=== PATIENT | male | born 1950 | race Caucasian/White ===

== ENCOUNTER 2019-11-05 10:44 | Inpatient (IN) ==
[2019-11-05 10:57] VITALS: BMI 21.3
--- NOTE | 2019-11-05 11:04 | DR.EXTPAIN ---
HPI Time seen Time Seen by Provider: 11/05/19 10:58 PCP Primary Care Physician: dr lafleur HPI Comment HPI Comment: PATIENT IS 69YR OLD MALE IN ER FOR GENERALIZED WEAKNESS AND ANOREXIA AND TO BE EVALUATED FOR PEG TUBE PLACEMENT. NO NAUSEA OR VOMITING. ES ENT IS NOT EATING AND IS GETTING WEAKER. NO COUGH OR CONGESTION. RECENTLY IN HOSPITAL IN [facility] AND IS IN THE PROCESS OF GOING INTO THE ALF FRIDAY. HE IS NOT EATING AND RELATIVES WANT A FEEDING TUBE SO HE CAN HAVE SOME NUTRITION. NO FEVER. Complaint/Symptoms Chief Complaint Doctor Comments: HERE FOR GENERALIZED WEAKNESS, ANREXIA SO HE CAN BE EVALUATED FOR FEEDING TUBE PLACEMENT. Chief Complaint:: family stated her was released from [place] a week ago and was sent to the [facility] in [place]. family stated he will not eat and has been loosing wt. family wanted him worked up. COVID-19 Coronavirus risk:travel/contact w/high risk person: No Has patient experienced Coronavirus symptoms: No Nurses notes reviewed Nurses Notes Review: Yes Source History Provided: Family Member Mode of arrival Mode of Arrival: Wheelchair Timing Onset of Chief Complaint: 10/29/19 Context History of: None Associated signs and symptoms Associated Signs and Symptoms: Weakness and Other (ANOREXIA.) PMH PMH Past Medical History: Yes (unknown) Past Surgical History: Yes Surgical History: Unknown Family History History of Family Medical Conditions: No Social History Does patient currently use any type of tobacco product: No Have you used tobacco products in the last 12 months: No Type of Tobacco Use: None Does any household member use tobacco: No Alcohol Use: None Do you use any recreational Drugs:: No Lives With: Family Lives Where: Home Infectious screening In the last 2 months have you had wt loss of >10#?: NO Have you had fever, night sweats or hemotysis?: No Have you traveled outside the country in the last 6 months?: No Isolation: Standard ROS Review of Systems Constitutional: See HPI, Weakness, Fatigue and Loss of Appetite; negative Fever Eyes: See HPI and Other (BLINDNESS LEFT EYE. DEAFNESS LEFT EAR.) ENTM: See HPI, Ear Pain and Hearing Loss (DEAFNESS LEFT EAR.); negative Nose Discharge, Nose Congestion and Throat Pain Respiratoy: No Symptoms Reported and See HPI; negative Moist Cough, Short of Jolene ath and Wheezing Cardiovascular: No Symptoms Reported and See HPI; negative Chest Pain, Edema and Palpitations Gastrointestinal/Abdominal: No Symptoms Reported and See HPI; negative Abdominal Pain, Diarrhea, Nausea and Vomiting Genitourinary: No Symptoms Reported and See HPI; negative Dysuria Neurological: See HPI and Weakness; negative Headache and Dizziness Musculoskeletal: No Symptoms Reported and See HPI; negative Back Pain Integumentary: No Symptoms Reported and See HPI; negative Change in Color, Rash and Juandice Hematologic/Lymphatic: No Symptoms Reported and See HPI; negative Easy Bruising and Swollen Glands Endocrine: No Symptoms Reported and See HPI; negative Increased Thirst and Increased Urine Psychiatric: No Symptoms Reported and See HPI All Other Systems: Reviewed and Negative PE Vital Signs Vitals: Temperature 98.1 F Pulse Rate [Left Radial] 102 Pulse Rate 78 Respiratory Rate 20 Blood Pressure [Left Arm] 175/84 Blood Pressure 117/72 O2 Sat by Pulse Oximetry 98 General Limitations: No Limitations General Appearance: Alert and In No Apparent Distress Head Head Exam: Normal Inspection Eyes Eye exam: Normal Appearance and Other (BLINDNESS LEFT EYE.); negative Conjunctival Injection ENT ENT Exam: Normal Exam, Normal Oropharynx, Normal External Ear Exam and TM's No rmal Bilaterally Neck Neck Exam: Normal Inspection and Trachea Midline; negative Tenderness and Lymphadenopathy Chest Chest Inspection: Normal Inspection and Symmetric Chest Wall Rise; negative Tenderness Respiratory Respiratory Exam: Normal Lung Sounds Bilat; negative Accessory Muscle Use, Chest Wall Tenderness and Respiratory Distress Respiratory Exam: Bilateral: Rhonchi and Lower: Rhonchi Cardiovascular Cardiovascular Exam: Regular Rate, Normal Rhythm and Normal Heart Sounds; negative Systolic Murmur and Diastolic Murmur Abdominal Exam Abdominal Exam: Normal Inspection, Normal Bowel Sounds and Soft; negative Tenderness Extremities Extremities Exam: Normal Inspection and Normal Capillary Refill; negative Tenderness, Edema and Calf Tenderness Back Back Exam: Normal Inspection Neurological Neurological Exam: Alert; negative Motor Sensory Deficit Psychiatric Psychiatric Exam: Normal Affect and Normal Mood Skin Skin Exam: Warm, Dry, Intact and Normal Color; negative Rash MDM Differential Diagnosis Differential Diagnosis: Other (ANOREXIA, GENERALIZED WEAKNESS, G-TUBE PLACEMENT.) COURSE Treatment Treatment: SEE ORDERS. Consultation Consultation Comments: SURGERY CONSULT. DR. SUNSHINE IN ER TO SEE PATIENT AND WILL INSERT G-TUBE TODAY. Education/Counseling Education/Counseling: Patient and Family Educated On: Diagnosis ROR Labs Reviewed Laboratory Results Reviewed?: Yes Result Diagrams: 11/06/19 04:24 11/06/19 04:24 Laboratory: WBC 8.5 X10^3/uL (3.6-10.0) 11/05/19 11:25 RBC 3.60 X10^6/uL (4.7-6.0) L 11/05/19 11:25 Hgb 11.0 g/dL (13.5-18.0) L 11/05/19 11:25 Hct 33.3 % (42.0-54.0) L 11/05/19 11:25 MCV 92.5 fL (80.0-100.0) 11/05/19 11:25 MCH 30.5 pg (27.0-34.0) 11/05/19 11:25 MCHC 32.9 g/dL (33.0-35.0) L 11/05/19 11:25 RDW 18.6 % (11.6-16.5) H 11/05/19 11:25 Plt Count 447 X10^3/uL (150.0-450.0) 11/05/19 11:25 MPV 8.3 fL (7.4-11.0) 11/05/19 11:25 Neut % (Auto) 71.9 % (42.0-75.0) 11/05/19 11:25 Lymph % (Auto) 15.6 % (21.0-51.0) L 11/05/19 11:25 [place] % (Auto) 11.0 % (0.0-13.0) 11/05/19 11:25 Eos % (Auto) 1.2 % (0.9-2.9) 11/05/19 11:25 Baso % (Auto) 0.3 % (0.2-1.0) 11/05/19 11:25 Neut # (Auto) 6.1 x10^3/uL (2.2-4.8) H 11/05/19 11:25 Lymph # (Auto) 1.3 X10^3/uL (1.3-2.9) 11/05/19 11:25 [place] # (Auto) 0.9 x10^3/uL (0.3-0.8) H 11/05/19 11:25 Eos # (Auto) 0.1 x10^3/uL (0.0-0.2) 11/05/19 11:25 Baso # (Auto) 0.0 X10^3/uL (0.0-0.1) 11/05/19 11:25 Absolute Nucleated RBC 0.1 /100WBC 11/05/19 11:25 Sodium 140 mmol/L (136-145) 11/05/19 11:38 Corrected Sodium TNP 11/05/19 11:38 Potassium 4.2 mmol/L (3.5-5.1) 11/05/19 11:38 Chloride 106 mmol/L (98-107) 11/05/19 11:38 Carbon Dioxide 27.3 mmol/L (21-32) 11/05/19 11:38 BUN 15 mg/dL (7-18) 11/05/19 11:38 Creatinine 0.86 mg/dL (0.70-1.30) 11/05/19 11:38 Est GFR (MDRD) Af Amer > 60 (>60) 11/05/19 11:38 Est GFR (MDRD) Non-Af > 60 (>60) 11/05/19 11:38 Glucose 96 mg/dL (65-99) 11/05/19 11:38 Calcium 9.1 mg/dL (8.5-10.1) 11/05/19 11:38 Corrected Calcium 10.5 mg/dL (8.5-10.1) H 11/05/19 11:38 Total Bilirubin 0.50 mg/dL (0.2-1.0) 11/05/19 11:38 AST 43 Units/L (15-37) H 11/05/19 11:38 ALT 52 Units/L (12-78) 11/05/19 11:38 Alkaline Phosphatase 107 Units/L (46-116) 11/05/19 11:38 Total Protein 7.6 g/dL (6.4-8.2) 11/05/19 11:38 Albumin 2.3 g/dL (3.4-5.0) L 11/05/19 11:38 Globulin 5.3 g/dL (2.5-4.5) H 11/05/19 11:38 Albumin/Globulin Ratio 0.4 Ratio (1.1-2.1) L 11/05/19 11:38 SARS-CoV-2 (PCR) Negative (NEGATIVE) 05/22/20 11:56 XRAY XRAY Interpreted by: Radiologist (REPORT NOTED AND DISCUSSED WITH PATIENT. ) and Self EKG Rate: 83 [place]: LAD Rhythm: NSR Block: IVCD Hypertrophy: LVH ST: Nonsp Opioid Opioid Risk Tool Age ([place] box if 16-45): No History of Preadolescent Sexual Abuse: No Total: 0 Total Score Risk Category: Low Risk Copyright: Gallo VELIZ predicting aberrant behaviors Diagnosis Discharge Problem: Weakness, Anorexia Instructions Forms: Excuse From Work Precautions for COVID19 Patient Portal Social Distancing
[2019-11-05 11:41] LABS: BASOPHILS % (AUTO) 0.3 % (0.2-1.0); EOSINOPHILS # (AUTO) 0.1 x10^3/uL (0.0-0.2); EOSINOPHILS % (AUTO) 1.2 % (0.9-2.9); HEMATOCRIT 33.3 % (42.0-54.0); LYMPHOCYTES # (AUTO) 1.3 X10^3/uL (1.3-2.9); LYMPHOCYTES % (AUTO) 15.6 % (21.0-51.0); MEAN CORPUSCULAR HEMOGLOBIN 30.5 pg (27.0-34.0); MEAN CORPUSCULAR HGB CONC 32.9 g/dL (33.0-35.0); MEAN CORPUSCULAR VOLUME 92.5 fL (80.0-100.0); MEAN PLATELET VOLUME 8.3 fL (7.4-11.0); MONOCYTES # (AUTO) 0.9 x10^3/uL (0.3-0.8); NEUTROPHILS # (AUTO) 6.1 x10^3/uL (2.2-4.8); NEUTROPHILS % (AUTO) 71.9 % (42.0-75.0); PLATELET COUNT 447 X10^3/uL (150.0-450.0); RED CELL DISTRIBUTION WIDTH 18.6 % (11.6-16.5); WHITE BLOOD COUNT 8.5 X10^3/uL (3.6-10.0)
[2019-11-05 11:56] LABS: ALANINE AMINOTRANSFERASE 52 Units/L (12-78); ALBUMIN 2.3 g/dL (3.4-5.0); ALKALINE PHOSPHATASE 107 Units/L (46-116); ASPARTATE AMINO TRANSFERASE 43 Units/L (15-37); BLOOD UREA NITROGEN 15 mg/dL (7-18); CALCIUM 9.1 mg/dL (8.5-10.1); CARBON DIOXIDE 27.3 mmol/L (21-32); CHLORIDE 106 mmol/L (98-107); COR CA(FOR HYPOALB) 10.5 mg/dL (8.5-10.1); CREATININE 0.86 mg/dL (0.70-1.30); SODIUM 140 mmol/L (136-145); TOTAL PROTEIN 7.6 g/dL (6.4-8.2); eGFR NON BLACK RACES > 60 (>60)
--- NOTE | 2019-11-05 12:07 | RAD ---
HISTORYPREOP CLEARANCE FOR GTUBESTUDYCHEST, 1 VIEWCOMPARISONApril 2019.FINDINGSThe trachea is midline. The cardiac silhouette is enlarged stable. The lungs are clear without focal infiltrate or effusion. The bony thorax is unremarkable. There is no evidence for CHF. There is no pneumothorax appreciated. No other cardiopulmonary changes seen.IMPRESSIONNo acute cardiopulmonary disease or changes.Electronically signed by: FITO GANN III (November 05, 2019 12:05:42)
[2019-11-05] MEDS ORDERED: DIPRIVAN VIAL 20 ML ONE (14:49)
[2019-11-05] MEDS ORDERED: XYLOCAINE 2 % (PLAIN) ONE ×2 (14:49)
[2019-11-05] MEDS ORDERED: ANCEF 1 GRAM IV PREMIX* 1 G/50 ML BAG IV ONE (15:35)
--- NOTE | 2019-11-05 15:38 | OR.IMMED ---
Immediate Post-Op Note - Immediate Post-Op Note Pre-Op Diagnosis: failure to thrive and poor oral intake .. Post-Op Diagnosis: same . Procedure: EGD . placement of PEG feding tube . Surgeon/Quality Management Coordinator: Zion. Specimens Removed: none. Estimated Blood Loss: <2cc Drains: NONE Complications: none Condition: Stable (to keep NPO .. PEG tube to gravity q 6 houre for 15 minutes)
[2019-11-05] MEDS ORDERED: D5 1/2 NS 1000 ML 1,000 ML IV SCH (16:00)
[2019-11-05] MEDS: NS 1000 ML 1,000 ML IV SCH (19:24)
[2019-11-05] MEDS ORDERED: APRESOLINE INJ 20 MG VIAL IVP PRN (21:10)
--- NOTE | 2019-11-05 21:11 | DR.H&P ---
H&P History & Physical for Day of: H&P Date: 11/05/19 Chief Complaint Chief Complaint: Weakness Allergies Allergies Allergy/AdvReac Type Severity Reaction Status Date / Time Unable to Assess Allergy Unverified 10/10/19 22:40 History of Present Illness History of Present Illness: Pt is a 69 yo m pmhx HTN, Blind, Deaf, and has MR, admitted for weakness and poor oral intake. General surgery was consulted for PEG tube placement. Initial labs/imaging: Wbc 8.5, Hgb 11, Plt 447, Na 140, K 4.2, Cr 0.86, Gluc 96, CXR negative, COVID negative. Pt is scheduled to have procedure today. Continue to monitor and follow up labs in the morning. Past Surgical History Surgical History: Angioplasty/Stents and Other Family History Family Medical History: Coronary Artery Disease Social History Does patient currently use any type of tobacco product: No Have you used tobacco products in the last 12 months: No Type of Tobacco Use: None Does any household member use tobacco: No Alcohol Use: None Drug Use: None Medications Home Medications: Unable to Assess Allergy (Unverified 10/10/19 22:40) CONTINUE taking the following medications acetaminophen 650 mg MD Q4H 11/05/19 [History] haloperidol lactate 11/05/19 [History] haloperidol lactate 11/05/19 [History] hydralazine 25 mg PO DAILY 11/05/19 [History] hyoscyamine sulfate 0.125 mg PO Q4H PRN 11/05/19 [History] lisinopril 10 mg PO DAILY 11/05/19 [History] lorazepam 0.5 mg PO Q2H PRN 11/05/19 [History] metoprolol tartrate 25 mg PO DAILY 11/05/19 [History] morphine concentrate 100 11/05/19 [History] prochlorperazine [Compro] 25 mg MD BID 11/05/19 [History] prochlorperazine [Compro] 25 mg MD BID 11/05/19 [History] quetiapine 50 mg PO BID 11/05/19 [History] Labs Result Diagrams: 11/06/19 04:24 11/06/19 04:24 Labs: Laboratory WBC 8.5 X10^3/uL (3.6-10.0) 11/05/19 11:25 RBC 3.60 X10^6/uL (4.7-6.0) L 11/05/19 11:25 Hgb 11.0 g/dL (13.5-18.0) L 11/05/19 11:25 Hct 33.3 % (42.0-54.0) L 11/05/19 11:25 MCV 92.5 fL (80.0-100.0) 11/05/19 11:25 MCH 30.5 pg (27.0-34.0) 11/05/19 11:25 MCHC 32.9 g/dL (33.0-35.0) L 11/05/19 11:25 RDW 18.6 % (11.6-16.5) H 11/05/19 11:25 Plt Count 447 X10^3/uL (150.0-450.0) 11/05/19 11:25 MPV 8.3 fL (7.4-11.0) 11/05/19 11:25 Neut % (Auto) 71.9 % (42.0-75.0) 11/05/19 11:25 Lymph % (Auto) 15.6 % (21.0-51.0) L 11/05/19 11:25 [place] % (Auto) 11.0 % (0.0-13.0) 11/05/19 11:25 Eos % (Auto) 1.2 % (0.9-2.9) 11/05/19 11:25 Baso % (Auto) 0.3 % (0.2-1.0) 11/05/19 11:25 Neut # (Auto) 6.1 x10^3/uL (2.2-4.8) H 11/05/19 11:25 Lymph # (Auto) 1.3 X10^3/uL (1.3-2.9) 11/05/19 11:25 [place] # (Auto) 0.9 x10^3/uL (0.3-0.8) H 11/05/19 11:25 Eos # (Auto) 0.1 x10^3/uL (0.0-0.2) 11/05/19 11:25 Baso # (Auto) 0.0 X10^3/uL (0.0-0.1) 11/05/19 11:25 Absolute Nucleated RBC 0.1 /100WBC 11/05/19 11:25 Sodium 140 mmol/L (136-145) 11/05/19 11:38 Corrected Sodium TNP 11/05/19 11:38 Potassium 4.2 mmol/L (3.5-5.1) 11/05/19 11:38 Chloride 106 mmol/L (98-107) 11/05/19 11:38 Carbon Dioxide 27.3 mmol/L (21-32) 11/05/19 11:38 BUN 15 mg/dL (7-18) 11/05/19 11:38 Creatinine 0.86 mg/dL (0.70-1.30) 11/05/19 11:38 Est GFR (MDRD) Af Amer > 60 (>60) 11/05/19 11:38 Est GFR (MDRD) Non-Af > 60 (>60) 11/05/19 11:38 Glucose 96 mg/dL (65-99) 11/05/19 11:38 Calcium 9.1 mg/dL (8.5-10.1) 11/05/19 11:38 Corrected Calcium 10.5 mg/dL (8.5-10.1) H 11/05/19 11:38 Total Bilirubin 0.50 mg/dL (0.2-1.0) 11/05/19 11:38 AST 43 Units/L (15-37) H 11/05/19 11:38 ALT 52 Units/L (12-78) 11/05/19 11:38 Alkaline Phosphatase 107 Units/L (46-116) 11/05/19 11:38 Total Protein 7.6 g/dL (6.4-8.2) 11/05/19 11:38 Albumin 2.3 g/dL (3.4-5.0) L 11/05/19 11:38 Globulin 5.3 g/dL (2.5-4.5) H 11/05/19 11:38 Albumin/Globulin Ratio 0.4 Ratio (1.1-2.1) L 11/05/19 11:38 SARS-CoV-2 (PCR) Negative (NEGATIVE) 11/05/19 11:56 Review of Systems Constitutional: Weakness; denies Fever and Chills Eyes: No Symptoms Reported ENT: No Symptoms Reported Cardiovascular: No Symptoms Reported Gastrointestinal: No Symptoms Reported Genitourinary: No Symptoms Reported Musculoskeletal: No Symptoms Reported Skin: No Symptoms Reported Neurological: No Symptoms Reported Physical Exam Vital Signs: Temperature 99.1 F Pulse Rate [Left Radial] 83 Pulse Rate 78 Respiratory Rate 20 Blood Pressure [Left Arm] 187/91 Blood Pressure 117/72 O2 Sat by Pulse Oximetry 99 Oriented: Unable to test Eyes: Other (Blind) Nose: Normal Respiratory: Clear Throughout Cardiovascular: Normal Auscultation: Bowel Sounds: Normal Palpation: Normal Tenderness: Normal Skin: Normal Musculoskeletal: Normal Psychiatric: Other Speech Pattern: Appropriate Assessment/Plan (1) Anorexia: Status: Acute Plan: Scheduled for PEG tube placement by general surgery. Continue to monitor. (2) Generalized weakness: Status: Acute (3) Hypertension: Qualifiers: Hypertension type: essential hypertension Qualified Code(s): I10 - Essential (primary) hypertension Status: Acute Review H&P Reviewed: Yes Patient was examined?: Yes
[2019-11-06 00:11] LABS: BILIRUBIN,URINE NEGATIVE (NEGATIVE); BLOOD/HEMOGLOBIN,URINE 4+ (NEGATIVE); GLUCOSE, URINE NEGATIVE (NEGATIVE); KETONES,URINE 2+ (NEGATIVE); LEUKOCYTE ESTERASE ,URINE 3+ (NEGATIVE); NITRITES,URINE POSITIVE (NEGATIVE); PROTEIN,URINE 3+ (NEGATIVE); UROBILINOGEN,URINE NORMAL (NORMAL)
[2019-11-06 00:12] LABS: APPEARANCE,URINE HAZY (CLEAR); COLOR,URINE YELLOW (YELLOW)
[2019-11-06 00:20] LABS: BACTERIA,URINE 1+ /HPF (NEGATIVE); MUCUS,URINE FEW /HPF (NEGATIVE); SQUAMOUS EPITHELIAL CELL,UR NEGATIVE /HPF (NEGATIVE)
[2019-11-06] MEDS: NS 1000 ML 1,000 ML IV SCH ×2 (03:10→06:08)
[2019-11-06 06:02] LABS: BASOPHILS % (AUTO) 0.4 % (0.2-1.0); EOSINOPHILS # (AUTO) 0.1 x10^3/uL (0.0-0.2); EOSINOPHILS % (AUTO) 1.1 % (0.9-2.9); HEMATOCRIT 28.8 % (42.0-54.0); HEMOGLOBIN 9.5 g/dL (13.5-18.0); LYMPHOCYTES # (AUTO) 1.4 X10^3/uL (1.3-2.9); LYMPHOCYTES % (AUTO) 17.3 % (21.0-51.0); MEAN CORPUSCULAR HEMOGLOBIN 30.8 pg (27.0-34.0); MEAN CORPUSCULAR VOLUME 93.1 fL (80.0-100.0); MEAN PLATELET VOLUME 9.3 fL (7.4-11.0); MONOCYTES # (AUTO) 0.9 x10^3/uL (0.3-0.8); MONOCYTES % (AUTO) 10.7 % (0.0-13.0); NEUTROPHILS # (AUTO) 5.9 x10^3/uL (2.2-4.8); NEUTROPHILS % (AUTO) 70.5 % (42.0-75.0); PLATELET COUNT 363 X10^3/uL (150.0-450.0); RED BLOOD COUNT 3.09 X10^6/uL (4.7-6.0); RED CELL DISTRIBUTION WIDTH 18.7 % (11.6-16.5); WHITE BLOOD COUNT 8.4 X10^3/uL (3.6-10.0)
[2019-11-06 06:31] LABS: ALANINE AMINOTRANSFERASE 37 Units/L (12-78); ALKALINE PHOSPHATASE 88 Units/L (46-116); ASPARTATE AMINO TRANSFERASE 31 Units/L (15-37); BLOOD UREA NITROGEN 18 mg/dL (7-18); CALCIUM 8.3 mg/dL (8.5-10.1); CHLORIDE 109 mmol/L (98-107); COR CA(FOR HYPOALB) 9.9 mg/dL (8.5-10.1); CREATININE 0.82 mg/dL (0.70-1.30); SODIUM 141 mmol/L (136-145); TOTAL PROTEIN 6.7 g/dL (6.4-8.2); eGFR NON BLACK RACES > 60 (>60)
--- NOTE | 2019-11-06 12:06 | PCM.PROG ---
Progress Note Progress Note for Day of Date of Exam: 11/06/19 Subjective Subjective: Pt is a 69 yo m pmhx HTN, Blind, Deaf, and has MR, admitted for PEG tube placement after having weakness and poor oral intake. S/p PEG tube placement (11/04). Labs/imaging: Wbc 8.4, Hgb 11>9.5, Plt 363, Na 141, K 4, Cr 0.82, Gluc 79, CXR negative, COVID negative. Overnight patient did have slow bleeding surround the tube site. Area now appears to not be actively bleeding. Will hold on using PEG tube until this afternoon if area remains stable. UA results c/w infection, UrineCx pending. Will start Rocephin. Continue to monitor and follow up labs in the morning. Past Medical Family Social History Past Med/Fam/Surg Hx: No changes since H&P Allergies: Allergies Unable to Assess Allergy (Unverified 10/10/19 22:40) Review of Systems ROS: No change since H&P Vital Signs and I&O's Vital Signs: Temperature 98.9 F Pulse Rate [Left Radial] 89 Pulse Rate 78 Respiratory Rate 18 Blood Pressure [Left Arm] 134/83 Blood Pressure 117/72 O2 Sat by Pulse Oximetry 98 Intake and Output: Intake & Output 11/03/19 11/04/19 11/05/19 11/06/19 23:59 23:59 23:59 23:59 Intake Total 820 / 820 400 / 400 Output Total 300 / 300 105 / 105 Balance 520 / 520 295 / 295 Physical Exam Oriented: Unable to test Eyes: Other (Blind) Nose: Normal Cardiovascular: Normal Auscultation: Bowel Sounds: Normal Tenderness: Normal Skin: Other (PEG tube, dried blood surrounding insertion site ) Musculoskeletal: Normal Psychiatric: Other Speech Pattern: Appropriate Laboratory and Diagnostics Result Diagrams: 11/06/19 04:24 11/06/19 04:24 Labs: Laboratory WBC 8.4 X10^3/uL (3.6-10.0) 11/06/19 04:24 RBC 3.09 X10^6/uL (4.7-6.0) L 11/06/19 04:24 Hgb 9.5 g/dL (13.5-18.0) L 11/06/19 04:24 Hct 28.8 % (42.0-54.0) L 11/06/19 04:24 MCV 93.1 fL (80.0-100.0) 11/06/19 04:24 MCH 30.8 pg (27.0-34.0) 11/06/19 04:24 MCHC 33.0 g/dL (33.0-35.0) 11/06/19 04:24 RDW 18.7 % (11.6-16.5) H 11/06/19 04:24 Plt Count 363 X10^3/uL (150.0-450.0) 11/06/19 04:24 MPV 9.3 fL (7.4-11.0) 11/06/19 04:24 Neut % (Auto) 70.5 % (42.0-75.0) 11/06/19 04:24 Lymph % (Auto) 17.3 % (21.0-51.0) L 11/06/19 04:24 [place] % (Auto) 10.7 % (0.0-13.0) 11/06/19 04:24 Eos % (Auto) 1.1 % (0.9-2.9) 11/06/19 04:24 Baso % (Auto) 0.4 % (0.2-1.0) 11/06/19 04:24 Neut # (Auto) 5.9 x10^3/uL (2.2-4.8) H 11/06/19 04:24 Lymph # (Auto) 1.4 X10^3/uL (1.3-2.9) 11/06/19 04:24 [place] # (Auto) 0.9 x10^3/uL (0.3-0.8) H 11/06/19 04:24 Eos # (Auto) 0.1 x10^3/uL (0.0-0.2) 11/06/19 04:24 Baso # (Auto) 0.0 X10^3/uL (0.0-0.1) 11/06/19 04:24 Absolute Nucleated RBC 0.0 /100WBC 11/06/19 04:24 Sodium 141 mmol/L (136-145) 11/06/19 04:24 Corrected Sodium TNP 11/06/19 04:24 Potassium 4.0 mmol/L (3.5-5.1) 11/06/19 04:24 Chloride 109 mmol/L (98-107) H 11/06/19 04:24 Carbon Dioxide 23.0 mmol/L (21-32) 11/06/19 04:24 BUN 18 mg/dL (7-18) 11/06/19 04:24 Creatinine 0.82 mg/dL (0.70-1.30) 11/06/19 04:24 Est GFR (MDRD) Af Amer > 60 (>60) 11/06/19 04:24 Est GFR (MDRD) Non-Af > 60 (>60) 11/06/19 04:24 Glucose 79 mg/dL (65-99) 11/06/19 04:24 Calcium 8.3 mg/dL (8.5-10.1) L 11/06/19 04:24 Corrected Calcium 9.9 mg/dL (8.5-10.1) 11/06/19 04:24 Total Bilirubin 0.40 mg/dL (0.2-1.0) 11/06/19 04:24 AST 31 Units/L (15-37) 11/06/19 04:24 ALT 37 Units/L (12-78) 11/06/19 04:24 Alkaline Phosphatase 88 Units/L (46-116) 11/06/19 04:24 Total Protein 6.7 g/dL (6.4-8.2) 11/06/19 04:24 Albumin 2.0 g/dL (3.4-5.0) L 11/06/19 04:24 Globulin 4.7 g/dL (2.5-4.5) H 11/06/19 04:24 Albumin/Globulin Ratio 0.4 Ratio (1.1-2.1) L 11/06/19 04:24 Specimen Type Catherized urine 11/06/19 00:00 Urine Color Yellow (YELLOW) 11/06/19 00:00 Urine Appearance Hazy (CLEAR) 11/06/19 00:00 Urine pH 5.0 (5.0 - 8.0) 11/06/19 00:00 Ur Specific [place] 1.025 (1.000-1.030) 11/06/19 00:00 Urine Protein 3+ (NEGATIVE) 11/06/19 00:00 Urine Glucose (UA) Negative (NEGATIVE) 11/06/19 00:00 Urine Ketones 2+ (NEGATIVE) 11/06/19 00:00 Urine Occult Blood 4+ (NEGATIVE) 11/06/19 00:00 Urine Nitrite Positive (NEGATIVE) 11/06/19 00:00 Urine Bilirubin Negative (NEGATIVE) 11/06/19 00:00 Urine Urobilinogen Normal (NORMAL) 11/06/19 00:00 Ur Leukocyte Esterase 3+ (NEGATIVE) 11/06/19 00:00 Urine RBC 3-5 /HPF (0-3) A 11/06/19 00:00 Urine WBC 20-30 /HPF (0-5) A 11/06/19 00:00 Ur Squamous Epith Cells Negative /HPF (NEGATIVE) 11/06/19 00:00 Urine Bacteria 1+ /HPF (NEGATIVE) 11/06/19 00:00 Urine Mucus Few /HPF (NEGATIVE) 11/06/19 00:00 Ur Culture Indicated? Yes/culture set up 11/06/19 00:00 SARS-CoV-2 (PCR) Negative (NEGATIVE) 11/05/19 11:56 Plan (1) Status post insertion of percutaneous endoscopic gastrostomy (PEG) tube: Status: Acute Plan: Placed 11/05/19 (2) Anorexia: Status: Acute Plan: PEG tube placement by general surgery. (3) Generalized weakness: Status: Acute (4) Hypertension: Status: Acute Qualifiers: Hypertension type: essential hypertension Qualified Code(s): I10 - Essential (primary) hypertension Plan: Resume home medication (5) Urinary tract infection: Status: Acute Plan: Rocephin(11/05) UrineCx pending
[2019-11-06] MEDS ORDERED: HALDOL PO PRN (12:10)
[2019-11-06] MEDS ORDERED: ATIVAN TAB 0.5 MG PO PRN (12:10)
[2019-11-06] MEDS: ROCEPHIN VIAL 1 GRAM 1 G in NS 100 ML IV + SPIKE MINIBAG* 100 ML IV SCH (14:46)
[2019-11-06] MEDS: APRESOLINE TAB 25 MG PO SCH (14:46)
[2019-11-06] MEDS: SEROquel TAB 25 mg PO SCH (22:30)
[2019-11-07] MEDS: NS 1000 ML 1,000 ML IV SCH ×4 (00:33→21:42)
[2019-11-07 06:10] LABS: BASOPHILS % (AUTO) 0.5 % (0.2-1.0); EOSINOPHILS # (AUTO) 0.2 x10^3/uL (0.0-0.2); EOSINOPHILS % (AUTO) 2.5 % (0.9-2.9); HEMATOCRIT 25.9 % (42.0-54.0); HEMOGLOBIN 8.8 g/dL (13.5-18.0); LYMPHOCYTES # (AUTO) 1.4 X10^3/uL (1.3-2.9); LYMPHOCYTES % (AUTO) 19.9 % (21.0-51.0); MEAN CORPUSCULAR HGB CONC 33.7 g/dL (33.0-35.0); MEAN CORPUSCULAR VOLUME 91.9 fL (80.0-100.0); MONOCYTES # (AUTO) 0.8 x10^3/uL (0.3-0.8); MONOCYTES % (AUTO) 11.5 % (0.0-13.0); NEUTROPHILS # (AUTO) 4.7 x10^3/uL (2.2-4.8); NEUTROPHILS % (AUTO) 65.6 % (42.0-75.0); PLATELET COUNT 300 X10^3/uL (150.0-450.0); RED BLOOD COUNT 2.82 X10^6/uL (4.7-6.0); RED CELL DISTRIBUTION WIDTH 18.3 % (11.6-16.5); WHITE BLOOD COUNT 7.2 X10^3/uL (3.6-10.0)
[2019-11-07 06:27] LABS: ALANINE AMINOTRANSFERASE 30 Units/L (12-78); ALBUMIN 1.9 g/dL (3.4-5.0); ALKALINE PHOSPHATASE 87 Units/L (46-116); ASPARTATE AMINO TRANSFERASE 26 Units/L (15-37); BLOOD UREA NITROGEN 23 mg/dL (7-18); CALCIUM 8.2 mg/dL (8.5-10.1); CARBON DIOXIDE 25.3 mmol/L (21-32); CHLORIDE 109 mmol/L (98-107); COR CA(FOR HYPOALB) 9.9 mg/dL (8.5-10.1); COR NA(FOR HYPERGLY) 142 mmol/L (136-145); CREATININE 0.74 mg/dL (0.70-1.30); SODIUM 141 mmol/L (136-145); TOTAL PROTEIN 6.2 g/dL (6.4-8.2); eGFR NON BLACK RACES > 60 (>60)
[2019-11-07] MEDS ORDERED: K-DUR TAB 20 MEQ PO ONE (07:55)
[2019-11-07] MEDS: ROCEPHIN VIAL 1 GRAM 1 G in NS 100 ML IV + SPIKE MINIBAG* 100 ML IV SCH (09:12)
[2019-11-07] MEDS: SEROquel TAB 25 mg PO SCH ×2 (09:12→21:00)
[2019-11-07] MEDS: ZESTRIL TAB 10 MG PO SCH (09:13)
[2019-11-07] MEDS: APRESOLINE TAB 25 MG PO SCH (09:13)
[2019-11-07] MEDS: LOPRESSOR TAB 25 MG PO SCH (09:14)
--- NOTE | 2019-11-07 10:19 | PCM.PROG ---
Progress Note Progress Note for Day of Date of Exam: 11/07/19 Subjective Subjective: Pt is a 69 yo m pmhx HTN, Blind, Deaf, and has MR, admitted for PEG tube placement after having weakness and poor oral intake. S/p PEG tube placement (11/04). Labs/imaging: Wbc 7.2, Hgb 9.5>8.8, Plt 300, Na 141, K 3.5, Cr 0.74, Gluc 137, CXR negative, COVID negative. Yesterday afternoon feedings started using PEG, no complications, will get residuals q-shift. Hgb appears to have stabilized, will continue to monitor. UrineCx prelim >100K gram negative rods. Continue Rocephin. Continue to monitor and follow up labs in the morning. Past Medical Family Social History Past Med/Fam/Surg Hx: No changes since H&P Allergies: Allergies Unable to Assess Allergy (Unverified 10/10/19 22:40) Review of Systems ROS: No change since H&P Vital Signs and I&O's Vital Signs: Temperature 98.9 F Pulse Rate [Left Radial] 82 Pulse Rate 78 Respiratory Rate 18 Blood Pressure [Left Arm] 143/67 Blood Pressure 117/72 O2 Sat by Pulse Oximetry 98 Intake and Output: Intake & Output 11/04/19 11/05/19 11/06/19 11/07/19 23:59 23:59 23:59 23:59 Intake Total 820 / 820 1137 / 1137 936 / 936 Output Total 300 / 300 350 / 350 300 / 300 Balance 520 / 520 787 / 787 636 / 636 Physical Exam Oriented: Unable to test Eyes: Other (Blind) Nose: Normal Cardiovascular: Normal Auscultation: Bowel Sounds: Normal Tenderness: Normal Skin: Other (PEG tube, dried blood surrounding insertion site ) Musculoskeletal: Normal Psychiatric: Other Speech Pattern: Unclear Laboratory and Diagnostics Result Diagrams: 11/07/19 04:28 11/07/19 04:28 Labs: 11/06/19 00:00 Urine,Catheterized Urine Culture - Preliminary Laboratory WBC 7.2 X10^3/uL (3.6-10.0) 11/07/19 04:28 RBC 2.82 X10^6/uL (4.7-6.0) L 11/07/19 04:28 Hgb 8.8 g/dL (13.5-18.0) L 11/07/19 04:28 Hct 25.9 % (42.0-54.0) L 11/07/19 04:28 MCV 91.9 fL (80.0-100.0) 11/07/19 04:28 MCH 31.0 pg (27.0-34.0) 11/07/19 04:28 MCHC 33.7 g/dL (33.0-35.0) 11/07/19 04: RDW 18.3 % (11.6-16.5) H 11/07/19 04:28 Plt Count 300 X10^3/uL (150.0-450.0) 11/07/19 04:28 MPV 9.0 fL (7.4-11.0) 11/07/19 04:28 Neut % (Auto) 65.6 % (42.0-75.0) 11/07/19 04:28 Lymph % (Auto) 19.9 % (21.0-51.0) L 11/07/19 04:28 [place] % (Auto) 11.5 % (0.0-13.0) 11/07/19 04:28 Eos % (Auto) 2.5 % (0.9-2.9) 11/07/19 04:28 Baso % (Auto) 0.5 % (0.2-1.0) 11/07/19 04:28 Neut # (Auto) 4.7 x10^3/uL (2.2-4.8) 11/07/19 04:28 Lymph # (Auto) 1.4 X10^3/uL (1.3-2.9) 11/07/19 04:28 [place] # (Auto) 0.8 x10^3/uL (0.3-0.8) 11/07/19 04:28 Eos # (Auto) 0.2 x10^3/uL (0.0-0.2) 11/07/19 04:28 Baso # (Auto) 0.0 X10^3/uL (0.0-0.1) 11/07/19 04:28 Absolute Nucleated RBC 0.0 /100WBC 11/07/19 04:28 Sodium 141 mmol/L (136-145) 11/07/19 04:28 Corrected Sodium 142 mmol/L (136-145) 11/07/19 04:28 Potassium 3.5 mmol/L (3.5-5.1) 11/07/19 04:28 Chloride 109 mmol/L (98-107) H 11/07/19 04:28 Carbon Dioxide 25.3 mmol/L (21-32) 11/07/19 04:28 BUN 23 mg/dL (7-18) H 11/07/19 04:28 Creatinine 0.74 mg/dL (0.70-1.30) 11/07/19 04:28 Est GFR (MDRD) Af Amer > 60 (>60) 11/07/19 04:28 Est GFR (MDRD) Non-Af > 60 (>60) 11/07/19 04:28 Glucose 137 mg/dL (65-99) H 11/07/19 04:28 Calcium 8.2 mg/dL (8.5-10.1) L 11/07/19 04:28 Corrected Calcium 9.9 mg/dL (8.5-10.1) 11/07/19 04:28 Total Bilirubin 0.20 mg/dL (0.2-1.0) 11/07/19 04:28 AST 26 Units/L (15-37) 11/07/19 04:28 ALT 30 Units/L (12-78) 11/07/19 04:28 Alkaline Phosphatase 87 Units/L (46-116) 11/07/19 04:28 Total Protein 6.2 g/dL (6.4-8.2) L 11/07/19 04:28 Albumin 1.9 g/dL (3.4-5.0) L 11/07/19 04:28 Globulin 4.3 g/dL (2.5-4.5) 11/07/19 04:28 Albumin/Globulin Ratio 0.4 Ratio (1.1-2.1) L 11/07/19 04:28 Specimen Type Catherized urine 11/06/19 00:00 Urine Color Yellow (YELLOW) 11/06/19 00:00 Urine Appearance Hazy (CLEAR) 11/06/19 00:00 Urine pH 5.0 (5.0 - 8.0) 11/06/19 00:00 Ur Specific Simpson 1.025 (1.000-1.030) 11/06/19 00:00 Urine Protein 3+ (NEGATIVE) 11/06/19 00:00 Urine Glucose (UA) Negative (NEGATIVE) 11/06/19 00:00 Urine Ketones 2+ (NEGATIVE) 11/06/19 00:00 Urine Occult Blood 4+ (NEGATIVE) 11/06/19 00:00 Urine Nitrite Positive (NEGATIVE) 11/06/19 00:00 Urine Bilirubin Negative (NEGATIVE) 11/06/19 00:00 Urine Urobilinogen Normal (NORMAL) 11/06/19 00:00 Ur Leukocyte Esterase 3+ (NEGATIVE) 11/06/19 00:00 Urine RBC 3-5 /HPF (0-3) A 11/06/19 00:00 Urine WBC 20-30 /HPF (0-5) A 11/06/19 00:00 Ur Squamous Epith Cells Negative /HPF (NEGATIVE) 11/06/19 00:00 Urine Bacteria 1+ /HPF (NEGATIVE) 11/06/19 00:00 Urine Mucus Few /HPF (NEGATIVE) 11/06/19 00:00 Ur Culture Indicated? Yes/culture set up 11/06/19 00:00 SARS-CoV-2 (PCR) Negative (NEGATIVE) 11/05/19 11:56 Plan (1) Status post insertion of percutaneous endoscopic gastrostomy (PEG) tube: Status: Acute Plan: Placed on 11/05/19 (2) Anorexia: Status: Acute Plan: PEG tube placement by general surgery. (3) Generalized weakness: Status: Acute (4) Hypertension: Status: Acute Qualifiers: Hypertension type: essential hypertension Qualified Code(s): I10 - Essential (primary) hypertension Plan: Resume home medication (5) Urinary tract infection: Status: Acute Plan: Rocephin(11/05) UrineCx prelim gram negative rods
[2019-11-07] MEDS: LOVENOX INJ 40 MG SYR SC SCH (11:37)
[2019-11-07] MEDS ORDERED: BUTT CREAM (COMPOUND) TOP PRN (21:50)
[2019-11-08 05:21] LABS: BASOPHILS % (AUTO) 0.2 % (0.2-1.0); EOSINOPHILS # (AUTO) 0.2 x10^3/uL (0.0-0.2); EOSINOPHILS % (AUTO) 2.3 % (0.9-2.9); HEMATOCRIT 26.3 % (42.0-54.0); HEMOGLOBIN 8.9 g/dL (13.5-18.0); LYMPHOCYTES # (AUTO) 1.5 X10^3/uL (1.3-2.9); LYMPHOCYTES % (AUTO) 20.8 % (21.0-51.0); MEAN CORPUSCULAR HEMOGLOBIN 31.3 pg (27.0-34.0); MEAN CORPUSCULAR HGB CONC 33.6 g/dL (33.0-35.0); MEAN PLATELET VOLUME 9.6 fL (7.4-11.0); MONOCYTES # (AUTO) 0.8 x10^3/uL (0.3-0.8); MONOCYTES % (AUTO) 11.9 % (0.0-13.0); NEUTROPHILS # (AUTO) 4.6 x10^3/uL (2.2-4.8); NEUTROPHILS % (AUTO) 64.8 % (42.0-75.0); PLATELET COUNT 275 X10^3/uL (150.0-450.0); RED BLOOD COUNT 2.83 X10^6/uL (4.7-6.0); RED CELL DISTRIBUTION WIDTH 18.5 % (11.6-16.5); WHITE BLOOD COUNT 7.1 X10^3/uL (3.6-10.0)
[2019-11-08 05:28] LABS: ALANINE AMINOTRANSFERASE 25 Units/L (12-78); ALBUMIN 1.9 g/dL (3.4-5.0); ALKALINE PHOSPHATASE 83 Units/L (46-116); ASPARTATE AMINO TRANSFERASE 21 Units/L (15-37); BLOOD UREA NITROGEN 18 mg/dL (7-18); CALCIUM 8.2 mg/dL (8.5-10.1); CARBON DIOXIDE 28.2 mmol/L (21-32); CHLORIDE 107 mmol/L (98-107); COR CA(FOR HYPOALB) 9.9 mg/dL (8.5-10.1); COR NA(FOR HYPERGLY) 141 mmol/L (136-145); SODIUM 141 mmol/L (136-145); TOTAL PROTEIN 6.3 g/dL (6.4-8.2); eGFR NON BLACK RACES > 60 (>60)
[2019-11-08] MEDS: NS 1000 ML 1,000 ML IV SCH ×2 (06:19→09:26)
[2019-11-08] MEDS: ZESTRIL TAB 10 MG PO SCH (08:15)
[2019-11-08] MEDS: APRESOLINE TAB 25 MG PO SCH (08:15)
[2019-11-08] MEDS: SEROquel TAB 25 mg PO SCH ×2 (08:15→20:43)
[2019-11-08] MEDS: ROCEPHIN VIAL 1 GRAM 1 G in NS 100 ML IV + SPIKE MINIBAG* 100 ML IV SCH (08:16)
[2019-11-08] MEDS: LOVENOX INJ 40 MG SYR SC SCH (08:18)
[2019-11-08] MEDS: LOPRESSOR TAB 25 MG PO SCH (08:42)
--- NOTE | 2019-11-08 09:27 | PCM.PROG ---
Progress Note Progress Note for Day of Date of Exam: 11/08/19 Subjective Subjective: Pt is a 69 yo m pmhx HTN, Blind, Deaf, and has MR, admitted for PEG tube placement after having weakness and poor oral intake. S/p PEG tube placement (11/04). Labs/imaging: Wbc 7.1, Hgb 8.9, Plt 275, Na 141, K 3.8, Cr 0.70, Gluc 117. Continue to monitor residuals q-shift. UrineCx prelim >100K gram negative rods, final pending. Continue Rocephin. Continue to monitor and follow up labs in the morning. Past Medical Family Social History Past Med/Fam/Surg Hx: No changes since H&P Allergies: Allergies Unable to Assess Allergy (Unverified 10/10/19 22:40) Review of Systems ROS: No change since H&P Vital Signs and I&O's Vital Signs: Temperature 97.8 F Pulse Rate [Left Radial] 80 Pulse Rate 78 Respiratory Rate 18 Blood Pressure [Right Arm] 149/65 Blood Pressure [Left Arm] 143/67 Blood Pressure 117/72 O2 Sat by Pulse Oximetry 96 Intake and Output: Intake & Output 11/05/19 11/06/19 11/07/19 11/08/19 23:59 23:59 23:59 23:59 Intake Total 820 / 820 1137 / 1137 1975 / 1975 620 / 620 Output Total 300 / 300 350 / 350 800 / 800 300 / 300 Balance 520 / 520 787 / 787 1176 / 1176 320 / 320 Physical Exam Oriented: Unable to test Eyes: Other (Blind) Nose: Normal Respiratory: Normal Cardiovascular: Normal Auscultation: Bowel Sounds: Normal Tenderness: Normal Skin: Other (PEG tube, dried blood surrounding insertion site ) Musculoskeletal: Normal Psychiatric: Other Speech Pattern: Unclear Laboratory and Diagnostics Result Diagrams: 11/08/19 04:28 11/08/19 04:28 Labs: 11/06/19 00:00 Urine,Catheterized Urine Culture - Preliminary Laboratory WBC 7.1 X10^3/uL (3.6-10.0) 11/08/19 04:28 RBC 2.83 X10^6/uL (4.7-6.0) L 11/08/19 04:28 Hgb 8.9 g/dL (13.5-18.0) L 11/08/19 04:28 Hct 26.3 % (42.0-54.0) L 11/08/19 04:28 MCV 93.0 fL (80.0-100.0) 11/08/19 04:28 MCH 31.3 pg (27.0-34.0) 11/08/19 04: MCHC 33.6 g/dL (33.0-35.0) 11/08/19 04: RDW 18.5 % (11.6-16.5) H 11/08/19 04:28 Plt Count 275 X10^3/uL (150.0-450.0) 11/08/19 04: MPV 9.6 fL (7.4-11.0) 11/08/19 04: Neut % (Auto) 64.8 % (42.0-75.0) 11/08/19 04: Lymph % (Auto) 20.8 % (21.0-51.0) L 11/08/19 04:28 [place] % (Auto) 11.9 % (0.0-13.0) 11/08/19 04:28 Eos % (Auto) 2.3 % (0.9-2.9) 11/08/19 04: Baso % (Auto) 0.2 % (0.2-1.0) 11/08/19 04: Neut # (Auto) 4.6 x10^3/uL (2.2-4.8) 11/08/19 04:28 Lymph # (Auto) 1.5 X10^3/uL (1.3-2.9) 11/08/19 04:28 [place] # (Auto) 0.8 x10^3/uL (0.3-0.8) 11/08/19 04:28 Eos # (Auto) 0.2 x10^3/uL (0.0-0.2) 11/08/19 04: Baso # (Auto) 0.0 X10^3/uL (0.0-0.1) 11/08/19 04:28 Absolute Nucleated RBC 0.0 /100WBC 11/08/19 04:28 Sodium 141 mmol/L (136-145) 11/08/19 04:28 Corrected Sodium 141 mmol/L (136-145) 11/08/19 04:28 Potassium 3.8 mmol/L (3.5-5.1) 11/08/19 04:28 Chloride 107 mmol/L (98-107) 11/08/19 04:28 Carbon Dioxide 28.2 mmol/L (21-32) 11/08/19 04:28 BUN 18 mg/dL (7-18) 11/08/19 04:28 Creatinine 0.70 mg/dL (0.70-1.30) 11/08/19 04:28 Est GFR (MDRD) Af Amer > 60 (>60) 11/08/19 04:28 Est GFR (MDRD) Non-Af > 60 (>60) 11/08/19 04:28 Glucose 117 mg/dL (65-99) H 11/08/19 04:28 Calcium 8.2 mg/dL (8.5-10.1) L 11/08/19 04:28 Corrected Calcium 9.9 mg/dL (8.5-10.1) 11/08/19 04:28 Total Bilirubin 0.20 mg/dL (0.2-1.0) 11/08/19 04:28 AST 21 Units/L (15-37) 11/08/19 04:28 ALT 25 Units/L (12-78) 11/08/19 04:28 Alkaline Phosphatase 83 Units/L (46-116) 11/08/19 04:28 Total Protein 6.3 g/dL (6.4-8.2) L 11/08/19 04:28 Albumin 1.9 g/dL (3.4-5.0) L 11/08/19 04:28 Globulin 4.4 g/dL (2.5-4.5) 11/08/19 04:28 Albumin/Globulin Ratio 0.4 Ratio (1.1-2.1) L 11/08/19 04:28 Specimen Type Catherized urine 11/06/19 00:00 Urine Color Yellow (YELLOW) 11/06/19 00:00 Urine Appearance Hazy (CLEAR) 11/06/19 00:00 Urine pH 5.0 (5.0 - 8.0) 11/06/19 00:00 Ur Specific [place] 1.025 (1.000-1.030) 11/06/19 00:00 Urine Protein 3+ (NEGATIVE) 11/06/19 00:00 Urine Glucose (UA) Negative (NEGATIVE) 11/06/19 00:00 Urine Ketones 2+ (NEGATIVE) 11/06/19 00:00 Urine Occult Blood 4+ (NEGATIVE) 11/06/19 00:00 Urine Nitrite Positive (NEGATIVE) 11/06/19 00:00 Urine Bilirubin Negative (NEGATIVE) 11/06/19 00:00 Urine Urobilinogen Normal (NORMAL) 11/06/19 00:00 Ur Leukocyte Esterase 3+ (NEGATIVE) 11/06/19 00:00 Urine RBC 3-5 /HPF (0-3) A 11/06/19 00:00 Urine WBC 20-30 /HPF (0-5) A 11/06/19 00:00 Ur Squamous Epith Cells Negative /HPF (NEGATIVE) 11/06/19 00:00 Urine Bacteria 1+ /HPF (NEGATIVE) 11/06/19 00:00 Urine Mucus Few /HPF (NEGATIVE) 11/06/19 00:00 Ur Culture Indicated? Yes/culture set up 11/06/19 00:00 SARS-CoV-2 (PCR) Negative (NEGATIVE) 11/05/19 11:56 Plan (1) Status post insertion of percutaneous endoscopic gastrostomy (PEG) tube: Status: Acute Plan: Placed on 11/05/19 (2) Anorexia: Status: Acute Plan: PEG tube placement by general surgery. (3) Generalized weakness: Status: Acute (4) Hypertension: Status: Acute Qualifiers: Hypertension type: essential hypertension Qualified Code(s): I10 - Essential (primary) hypertension Plan: Resume home medication (5) Urinary tract infection: Status: Acute Plan: Rocephin(11/05) UrineCx prelim gram negative rods
[2019-11-08] MEDS: MAXIPIME VIAL 1 GRAM 1 G in NS 50 ML IV + SPIKE MINIBAG* 50 ML IV SCH ×2 (10:32→20:43)
[2019-11-09 05:29] LABS: BASOPHILS % (AUTO) 0.4 % (0.2-1.0); EOSINOPHILS # (AUTO) 0.1 x10^3/uL (0.0-0.2); EOSINOPHILS % (AUTO) 1.7 % (0.9-2.9); LYMPHOCYTES # (AUTO) 1.9 X10^3/uL (1.3-2.9); LYMPHOCYTES % (AUTO) 25.6 % (21.0-51.0); MEAN CORPUSCULAR HEMOGLOBIN 31.2 pg (27.0-34.0); MEAN CORPUSCULAR HGB CONC 33.4 g/dL (33.0-35.0); MEAN CORPUSCULAR VOLUME 93.6 fL (80.0-100.0); MEAN PLATELET VOLUME 9.9 fL (7.4-11.0); MONOCYTES # (AUTO) 0.7 x10^3/uL (0.3-0.8); MONOCYTES % (AUTO) 9.6 % (0.0-13.0); NEUTROPHILS # (AUTO) 4.8 x10^3/uL (2.2-4.8); NEUTROPHILS % (AUTO) 62.7 % (42.0-75.0); PLATELET COUNT 227 X10^3/uL (150.0-450.0); RED BLOOD COUNT 2.04 X10^6/uL (4.7-6.0); RED CELL DISTRIBUTION WIDTH 18.2 % (11.6-16.5); WHITE BLOOD COUNT 7.6 X10^3/uL (3.6-10.0)
[2019-11-09 05:35] LABS: ALANINE AMINOTRANSFERASE 19 Units/L (12-78); ALBUMIN 1.6 g/dL (3.4-5.0); ALKALINE PHOSPHATASE 63 Units/L (46-116); ASPARTATE AMINO TRANSFERASE 14 Units/L (15-37); BLOOD UREA NITROGEN 40 mg/dL (7-18); CARBON DIOXIDE 28.5 mmol/L (21-32); CHLORIDE 109 mmol/L (98-107); COR CA(FOR HYPOALB) 9.9 mg/dL (8.5-10.1); COR NA(FOR HYPERGLY) 143 mmol/L (136-145); CREATININE 0.63 mg/dL (0.70-1.30); SODIUM 142 mmol/L (136-145); TOTAL PROTEIN 5.5 g/dL (6.4-8.2); eGFR NON BLACK RACES > 60 (>60)
[2019-11-09 05:53] LABS: HEMATOCRIT 19.1 % (42.0-54.0); HEMOGLOBIN 6.4 g/dL (13.5-18.0)
[2019-11-09 07:15] LABS: HEMOGLOBIN 6.1 g/dL (13.5-18.0)
[2019-11-09 07:16] LABS: HEMATOCRIT 18.4 % (42.0-54.0)
[2019-11-09] MEDS: APRESOLINE TAB 25 MG PO SCH (08:31)
[2019-11-09] MEDS: ZESTRIL TAB 10 MG PO SCH (08:31)
[2019-11-09] MEDS: SEROquel TAB 25 mg PO SCH ×2 (08:31→20:20)
[2019-11-09] MEDS: MAXIPIME VIAL 1 GRAM 1 G in NS 50 ML IV + SPIKE MINIBAG* 50 ML IV SCH ×2 (08:31→20:20)
[2019-11-09] MEDS: LOPRESSOR TAB 25 MG PO SCH (08:32)
[2019-11-09] MEDS: CYTOTEC PO SCH ×4 (08:32→20:20)
[2019-11-09] MEDS: LOVENOX INJ 40 MG SYR SC SCH (08:33)
[2019-11-09] MEDS: PROTONIX INJ 40 MG VIAL IVP SCH ×2 (08:45→20:20)
[2019-11-09] MEDS ORDERED: NS 500 ML IV 500 ML IV ONE (08:53)
[2019-11-09 09:34] LABS: GASTRIC OCCULT BLOOD POSITIVE (NEGATIVE); PH,GASTRIC FLUID 4
--- NOTE | 2019-11-09 13:22 | DR.PROGNOT ---
Hospital Progress Notes - Progress Note for Day of: Progress Note Date: 11/09/19 - Chief Complaint Chief Complaint: was found to be anemic and drop of his Hgb . coffee ground material in the gastric irrigation . normal color stool .. stable VS . - Past Medical Family Social History Past Med/Fam/Surg Hx: No changes since H&P Allergies: Allergies Unable to Assess Allergy (Unverified 10/10/19 22:40) - Review Of Systems ROS: No change since H&P - Vital Signs Vital Signs: Temperature 97.7 F Pulse Rate [Left Radial] 86 Pulse Rate 78 Respiratory Rate 18 Blood Pressure [Right Arm] 140/63 Blood Pressure [Left Arm] 143/67 Blood Pressure 117/72 O2 Sat by Pulse Oximetry 99 - Physical Exam Oriented: Unable to test Eyes: Other (Blind) Nose: Normal Respiratory: Normal Cardiovascular: Normal GI:Auscultation: Normal GI:Palpation: Normal GI: Tenderness: Normal (soft, flat abdomen , BS+ nontender ..) Skin: Other (PEG tube, dried blood surrounding insertion site) Musculoskeletal: Normal Psychiatric: Other Speech Pattern: Unclear, Delayed - Laboratory and Diagnostics Result Diagrams: 11/09/19 06:33 11/09/19 04:27 Labs: 11/06/19 00:00 Urine,Catheterized Urine Culture - Final Pseudomonas Aeruginosa Laboratory WBC 7.6 X10^3/uL (3.6-10.0) 11/09/19 04:27 RBC 2.04 X10^6/uL (4.7-6.0) L 11/09/19 04:27 Hgb 6.1 g/dL (13.5-18.0) L* 11/09/19 06:33 Hct 18.4 % (42.0-54.0) L* 11/09/19 06:33 MCV 93.6 fL (80.0-100.0) 11/09/19 04:27 MCH 31.2 pg (27.0-34.0) 11/09/19 04:27 MCHC 33.4 g/dL (33.0-35.0) 11/09/19 04:27 RDW 18.2 % (11.6-16.5) H 11/09/19 04:27 Plt Count 227 X10^3/uL (150.0-450.0) 11/09/19 04:27 MPV 9.9 fL (7.4-11.0) 11/09/19 04:27 Neut % (Auto) 62.7 % (42.0-75.0) 11/09/19 04:27 Lymph % (Auto) 25.6 % (21.0-51.0) 11/09/19 04:27 [place] % (Auto) 9.6 % (0.0-13.0) 11/09/19 04:27 Eos % (Auto) 1.7 % (0.9-2.9) 11/09/19 04:27 Baso % (Auto) 0.4 % (0.2-1.0) 11/09/19 04:27 Neut # (Auto) 4.8 x10^3/uL (2.2-4.8) 11/09/19 04:27 Lymph # (Auto) 1.9 X10^3/uL (1.3-2.9) 11/09/19 04:27 [place] # (Auto) 0.7 x10^3/uL (0.3-0.8) 11/09/19 04:27 Eos # (Auto) 0.1 x10^3/uL (0.0-0.2) 11/09/19 04:27 Baso # (Auto) 0.0 X10^3/uL (0.0-0.1) 11/09/19 04: Absolute Nucleated RBC 0.0 /100WBC 11/09/19 04: PT 14.3 SECONDS (11.8-14.3) 11/09/19 06:33 INR Target Range - 11/09/19 06:33 INR 1.14 (0.8-1.3) 11/09/19 06:33 Sodium 142 mmol/L (136-145) 11/09/19 04:27 Corrected Sodium 143 mmol/L (136-145) 11/09/19 04:27 Potassium 4.2 mmol/L (3.5-5.1) 11/09/19 04:27 Chloride 109 mmol/L (98-107) H 11/09/19 04:27 Carbon Dioxide 28.5 mmol/L (21-32) 11/09/19 04:27 BUN 40 mg/dL (7-18) H 11/09/19 04:27 Creatinine 0.63 mg/dL (0.70-1.30) L 11/09/19 04:27 Est GFR (MDRD) Af Amer > 60 (>60) 11/09/19 04:27 Est GFR (MDRD) Non-Af > 60 (>60) 11/09/19 04:27 Glucose 121 mg/dL (65-99) H 11/09/19 04:27 Calcium 8.0 mg/dL (8.5-10.1) L 11/09/19 04:27 Corrected Calcium 9.9 mg/dL (8.5-10.1) 11/09/19 04:27 Iron 45 ug/dL (50-175) L 11/09/19 06:33 Transferrin 128 mg/dL (202-364) L 11/09/19 06:33 Ferritin 205 ng/mL (26-388) 11/09/19 06:33 Total Bilirubin 0.20 mg/dL (0.2-1.0) 11/09/19 04:27 AST 14 Units/L (15-37) L 11/09/19 04:27 ALT 19 Units/L (12-78) 11/09/19 04:27 Alkaline Phosphatase 63 Units/L (46-116) 11/09/19 04:27 Total Protein 5.5 g/dL (6.4-8.2) L 11/09/19 04:27 Albumin 1.6 g/dL (3.4-5.0) L 11/09/19 04:27 Globulin 3.9 g/dL (2.5-4.5) 11/09/19 04:27 Albumin/Globulin Ratio 0.4 Ratio (1.1-2.1) L 11/09/19 04:27 Vitamin B12 253 pg/mL (193-986) 11/09/19 06:33 Folate 6.8 ng/mL (>8.6) L 11/09/19 06:33 Specimen Type Catherized urine 11/06/19 00:00 Urine Color Yellow (YELLOW) 11/06/19 00:00 Urine Appearance Hazy (CLEAR) 11/06/19 00:00 Urine pH 5.0 (5.0 - 8.0) 11/06/19 00:00 Ur Specific [place] 1.025 (1.000-1.030) 11/06/19 00:00 Urine Protein 3+ (NEGATIVE) 11/06/19 00:00 Urine Glucose (UA) Negative (NEGATIVE) 11/06/19 00:00 Urine Ketones 2+ (NEGATIVE) 11/06/19 00:00 Urine Occult Blood 4+ (NEGATIVE) 11/06/19 00:00 Urine Nitrite Positive (NEGATIVE) 11/06/19 00:00 Urine Bilirubin Negative (NEGATIVE) 11/06/19 00:00 Urine Urobilinogen Normal (NORMAL) 11/06/19 00:00 Ur Leukocyte Esterase 3+ (NEGATIVE) 11/06/19 00:00 Urine RBC 3-5 /HPF (0-3) A 11/06/19 00:00 Urine WBC 20-30 /HPF (0-5) A 11/06/19 00:00 Ur Squamous Epith Cells Negative /HPF (NEGATIVE) 11/06/19 00:00 Urine Bacteria 1+ /HPF (NEGATIVE) 11/06/19 00:00 Urine Mucus Few /HPF (NEGATIVE) 11/06/19 00:00 Ur Culture Indicated? Yes/culture set up 11/06/19 00:00 Gastric Fluid pH 4 11/09/19 09:06 Gastric Occult Blood Positive (NEGATIVE) A 11/09/19 09:06 SARS-CoV-2 (PCR) Negative (NEGATIVE) 11/05/19 11:56 Blood Type O POSITIVE 11/09/19 06:33 Antibody Screen Negative 11/09/19 06:33 Crossmatch See Detail 11/09/19 06:33 - Assessment and Plan 1: s/p PEG placement . severe anemia . coffee ground material in the gastric irrigation . having blood transfusion and for EGD today . - Problem Patient Problems: Patient Problems Status post insertion of percutaneous endoscopic gastrostomy (PEG) tube (Acute) Z93.1 Urinary tract infection (Acute) N39.0 Generalized weakness (Acute) R53.1 Anorexia (Acute) R63.0
[2019-11-09 14:00] LABS: HEMATOCRIT 23.3 % (42.0-54.0)
[2019-11-09 14:01] LABS: HEMOGLOBIN 7.9 g/dL (13.5-18.0)
[2019-11-09] MEDS ORDERED: DIPRIVAN VIAL 20 ML ONE (14:05)
[2019-11-09] MEDS ORDERED: XYLOCAINE 2 % (PLAIN) ONE (14:05)
[2019-11-09] MEDS ORDERED: NS 250 ML IV 250 ML IV ONE (15:24)
[2019-11-09] MEDS: NS 1000 ML 1,000 ML IV SCH ×2 (15:55→20:19)
[2019-11-09] MEDS ORDERED: MAXIPIME VIAL 1 GRAM ONE (19:54)
[2019-11-09] MEDS ORDERED: NS 50 ML IV 50 ML IV ONE (19:55)
[2019-11-09 20:13] LABS: HEMATOCRIT 25.6 % (42.0-54.0); HEMOGLOBIN 8.7 g/dL (13.5-18.0)
[2019-11-10] MEDS: NS 1000 ML 1,000 ML IV SCH (01:53)
[2019-11-10 05:35] LABS: BASOPHILS % (AUTO) 0.5 % (0.2-1.0); EOSINOPHILS # (AUTO) 0.2 x10^3/uL (0.0-0.2); EOSINOPHILS % (AUTO) 2.1 % (0.9-2.9); HEMATOCRIT 25.7 % (42.0-54.0); HEMOGLOBIN 8.8 g/dL (13.5-18.0); LYMPHOCYTES # (AUTO) 1.9 X10^3/uL (1.3-2.9); LYMPHOCYTES % (AUTO) 23.8 % (21.0-51.0); MEAN CORPUSCULAR HEMOGLOBIN 31.1 pg (27.0-34.0); MEAN CORPUSCULAR HGB CONC 34.4 g/dL (33.0-35.0); MEAN CORPUSCULAR VOLUME 90.4 fL (80.0-100.0); MEAN PLATELET VOLUME 10.1 fL (7.4-11.0); MONOCYTES # (AUTO) 0.9 x10^3/uL (0.3-0.8); MONOCYTES % (AUTO) 11.7 % (0.0-13.0); NEUTROPHILS # (AUTO) 4.9 x10^3/uL (2.2-4.8); NEUTROPHILS % (AUTO) 61.9 % (42.0-75.0); PLATELET COUNT 194 X10^3/uL (150.0-450.0); RED BLOOD COUNT 2.84 X10^6/uL (4.7-6.0); WHITE BLOOD COUNT 7.9 X10^3/uL (3.6-10.0)
[2019-11-10 05:43] LABS: ALANINE AMINOTRANSFERASE 22 Units/L (12-78); ALBUMIN 1.7 g/dL (3.4-5.0); ALKALINE PHOSPHATASE 64 Units/L (46-116); ASPARTATE AMINO TRANSFERASE 28 Units/L (15-37); BLOOD UREA NITROGEN 27 mg/dL (7-18); CALCIUM 8.1 mg/dL (8.5-10.1); CARBON DIOXIDE 26.8 mmol/L (21-32); CHLORIDE 108 mmol/L (98-107); COR CA(FOR HYPOALB) 9.9 mg/dL (8.5-10.1); COR NA(FOR HYPERGLY) 141 mmol/L (136-145); CREATININE 0.58 mg/dL (0.70-1.30); SODIUM 140 mmol/L (136-145); TOTAL PROTEIN 5.6 g/dL (6.4-8.2); eGFR NON BLACK RACES > 60 (>60)
[2019-11-10] MEDS ORDERED: FOLIC ACID TAB 1 MG PO SCH (09:00)
[2019-11-10] MEDS: SEROquel TAB 25 mg PO SCH (09:08)
[2019-11-10] MEDS: ZESTRIL TAB 10 MG PO SCH (09:08)
[2019-11-10] MEDS: CYTOTEC PO SCH ×2 (09:09→13:30)
[2019-11-10] MEDS: APRESOLINE TAB 25 MG PO SCH (09:09)
[2019-11-10] MEDS: LOPRESSOR TAB 25 MG PO SCH (09:09)
[2019-11-10] MEDS: PROTONIX INJ 40 MG VIAL IVP SCH (09:17)
[2019-11-10] MEDS: MAXIPIME VIAL 1 GRAM 1 G in NS 50 ML IV + SPIKE MINIBAG* 50 ML IV SCH (10:23)
[2019-11-10 13:41] VITALS: BP 139/62
== END 2019-11-10 14:20 | DRG 641 ==
LOC: MED/SURG 10:44 → ER 10:44 → MED/SURG 11:15
PROVIDERS: ADMIT Family Medicine; ATTEND Obstetrics & Gynecology Obstetrics
DX: R26.89 Other abnormalities of gait and mobility; I25.2 Old myocardial infarction; E46 Unspecified protein-calorie malnutrition; R62.7 Adult failure to thrive; R63.0 Anorexia; N39.0 Urinary tract infection, site not specified; R53.1 Weakness; Z95.5 Presence of coronary angioplasty implant and graft; I25.10 Atherosclerotic heart disease of native coronary artery without angina pectoris; F79 Unspecified intellectual disabilities; R94.31 Abnormal electrocardiogram [ECG] [EKG]; F43.21 Adjustment disorder with depressed mood; B96.5 Pseudomonas (aeruginosa) (mallei) (pseudomallei) as the cause of diseases classified elsewhere; D64.89 Other specified anemias; I10 Essential (primary) hypertension; K25.3 Acute gastric ulcer without hemorrhage or perforation; Z11.59 Encounter for screening for other viral diseases
CPT/HCPCS: 36415; 36430; 71010; 71045; 80053; 81001; 82271; 82607; 82728; 82746; 83540; 84466; 85014; 85018; 85025; 85610; 86850; 86900; 86901; 86922; 87086; 87088; 87186; 87635; 93005; 94760; 96365; 97110; 97167; 97530; 99100; 99284; A4216; A4222; C9113; G0378; J0360; J0690; J0692; J0696; J1650; J2704; J7030; J7040; J7050; P9016; S0191

== ENCOUNTER 2020-07-23 13:19 | Observation (INO) ==
[2020-07-23] MEDS ORDERED: ATIVAN INJ 2 MG VIAL IVP PRN (13:30)
[2020-07-23 13:33] VITALS: BMI 25.2
[2020-07-23] MEDS ORDERED: ATIVAN INJ 2 MG VIAL ONE (13:33)
--- NOTE | 2020-07-23 13:47 | DR.SOBA ---
HPI Time Seen Time Seen by Provider: 07/23/20 13:28 Primary Care Physician Primary Care Physician: Samson Complaints Chief Complaint:: Per staff at [facility] patient was found to be diaphoretic, aggitated, hypoxic, and intermittent tachycardia. Per nursing staff patient had COVID last month. Upon arrival to ER patient was noted to be tachypnic and O2 on RA 97%. COVID-19 Coronavirus risk:travel/contact w/high risk person: No Has patient experienced Coronavirus symptoms: No Reviewed Nurses Notes Reviewed: Yes Source History Provided: Mcfp Mode of Arrival Mode of Arrival: Stretcher Timing Onset of Chief Complaint: 07/23/20 Duration Onset: a.m. Context Onset:: At Rest History of:: CHF PMH PMH Past Medical History: Yes Past Medical History: Anemia, Anxiety, CHF, Dyslipidemia, GERD and MA Past Surgical History: Yes Surgical History: Angioplasty/Stents and Other Family History History of Family Medical Conditions: No (Unable to obtain) Family Medical History: Coronary Artery Disease Social History Do you use any recreational Drugs:: No Infectious screening Have you traveled outside the country in the last 6 months?: No Isolation: Standard ROS Review of Systems Respiratoy: Short of Breath Neurological: See HPI and Other (Dementia) All Other Systems: Reviewed and Negative PE Vital Signs Vitals: Temperature 98.1 F Pulse Rate 89 Respiratory Rate 36 Blood Pressure [Right Arm] 129/80 Blood Pressure 155/89 O2 Sat by Pulse Oximetry 98 General Limitations: Other (Mentally impaired) General Appearance: Alert and Anxious Head Head Exam: Normal Inspection, Atraumatic and Normocephalic Eyes Eye exam: Normal Appearance ENT ENT Exam: Normal Exam Neck Neck Exam: Normal Inspection Chest Chest Inspection: Normal Inspection Respiratory Respiratory Exam: Other (Trace rales bases bilaterally) Abdominal Exam Abdominal Exam: Normal Inspection Extremities Extremities Exam: Normal Inspection Back Back Exam: Normal Inspection Neurologic Neurological Exam: Alert, CN II-XII Intact, Motor Sensory Deficit and Reflexes Normal Psychiatric Psychiatric Exam: Other (Mentally impaired) COURSE Treatment Treatment: Labs, x-rays, meds, admit Reevaluation 1st: Improved Consultation Called: 16:43 Call Returned: 16:43 ROR Labs Reviewed Laboratory Results Reviewed?: Yes Result Diagrams: 07/23/20 13:35 07/23/20 13:35 Laboratory: WBC 11.0 X10^3/uL (3.6-10.0) H 07/23/20 13:35 RBC 4.21 X10^6/uL (4.7-6.0) L 07/23/20 13:35 Hgb 12.0 g/dL (13.5-18.0) L 07/23/20 13:35 Hct 37.0 % (42.0-54.0) L 07/23/20 13:35 MCV 88.0 fL (80.0-100.0) 07/23/20 13:35 MCH 28.5 pg (27.0-34.0) 07/23/20 13:35 MCHC 32.4 g/dL (33.0-35.0) L 07/23/20 13:35 RDW 17.1 % (11.6-16.5) H 07/23/20 13:35 Plt Count 229 X10^3/uL (150.0-450.0) 07/23/20 13:35 MPV 9.8 fL (7.4-11.0) 07/23/20 13:35 Neut % (Auto) 72.2 % (42.0-75.0) 07/23/20 13:35 Lymph % (Auto) 17.9 % (21.0-51.0) L 07/23/20 13:35 [place] % (Auto) 8.5 % (0.0-13.0) 07/23/20 13:35 Eos % (Auto) 0.7 % (0.9-2.9) L 07/23/20 13:35 Baso % (Auto) 0.7 % (0.2-1.0) 07/23/20 13:35 Neut # (Auto) 7.9 x10^3/uL (2.2-4.8) H 07/23/20 13:35 Lymph # (Auto) 2.0 X10^3/uL (1.3-2.9) 07/23/20 13:35 [place] # (Auto) 0.9 x10^3/uL (0.3-0.8) H 07/23/20 13:35 Eos # (Auto) 0.1 x10^3/uL (0.0-0.2) 07/23/20 13:35 Baso # (Auto) 0.1 X10^3/uL (0.0-0.1) 07/23/20 13:35 Absolute Nucleated RBC 0.1 /100WBC 07/23/20 13:35 Sodium 144 mmol/L (136-145) 07/23/20 13:35 Corrected Sodium 145 mmol/L (136-145) 07/23/20 13:35 Potassium 4.2 mmol/L (3.5-5.1) 07/23/20 13:35 Chloride 111 mmol/L (98-107) H 07/23/20 13:35 Carbon Dioxide 19.4 mmol/L (21-32) L 07/23/20 13:35 BUN 13 mg/dL (7-18) 07/23/20 13:35 Creatinine 1.09 mg/dL (0.70-1.30) 07/23/20 13:35 Est GFR (MDRD) Af Amer > 60 (>60) 07/23/20 13:35 Est GFR (MDRD) Non-Af > 60 (>60) 07/23/20 13:35 Glucose 142 mg/dL (65-99) H 07/23/20 13:35 Calcium 9.3 mg/dL (8.5-10.1) 07/23/20 13:35 Corrected Calcium 10.7 mg/dL (8.5-10.1) H 07/23/20 13:35 Total Bilirubin 0.70 mg/dL (0.2-1.0) 07/23/20 13:35 AST 16 Units/L (15-37) 07/23/20 13:35 ALT 23 Units/L (12-78) 07/23/20 13:35 Alkaline Phosphatase 71 Units/L (46-116) 07/23/20 13:35 Creatine Kinase 34 Units/L (39-308) L 07/23/20 13:35 CK-MB (CK-2) 1.2 ng/mL (0-4.0) 07/23/20 13:35 CK/CKMB % Calc 3.5 % (<4) 07/23/20 13:35 Troponin I 0.13 ng/mL (0-1.5) 07/23/20 13:35 B-Natriuretic Peptide > 5000 pg/mL (0-79) H* 07/23/20 13:35 Total Protein 7.0 g/dL (6.4-8.2) 07/23/20 13:35 Albumin 2.3 g/dL (3.4-5.0) L 07/23/20 13:35 Globulin 4.7 g/dL (2.5-4.5) H 07/23/20 13:35 Albumin/Globulin Ratio 0.5 Ratio (1.1-2.1) L 07/23/20 13:35 SARS CoV-2 RNA Rapid YISEL Positive (NEGATIVE) A 07/23/20 15:46 XRAY XRAY Interpreted by: Radiologist X-ray Results: Patchy infiltrates bilaterally Opioid Opioid Risk Tool Age (Kirby box if 16-45): No History of Preadolescent Sexual Abuse: No Total: 0 Total Score Risk Category: Low Risk Copyright: Gallo VELIZ predicting aberrant behaviors
[2020-07-23 13:57] LABS: BASOPHILS # (AUTO) 0.1 X10^3/uL (0.0-0.1); BASOPHILS % (AUTO) 0.7 % (0.2-1.0); EOSINOPHILS # (AUTO) 0.1 x10^3/uL (0.0-0.2); EOSINOPHILS % (AUTO) 0.7 % (0.9-2.9); LYMPHOCYTES % (AUTO) 17.9 % (21.0-51.0); MEAN CORPUSCULAR HEMOGLOBIN 28.5 pg (27.0-34.0); MEAN CORPUSCULAR HGB CONC 32.4 g/dL (33.0-35.0); MEAN PLATELET VOLUME 9.8 fL (7.4-11.0); MONOCYTES # (AUTO) 0.9 x10^3/uL (0.3-0.8); MONOCYTES % (AUTO) 8.5 % (0.0-13.0); NEUTROPHILS # (AUTO) 7.9 x10^3/uL (2.2-4.8); NEUTROPHILS % (AUTO) 72.2 % (42.0-75.0); PLATELET COUNT 229 X10^3/uL (150.0-450.0); RED BLOOD COUNT 4.21 X10^6/uL (4.7-6.0); RED CELL DISTRIBUTION WIDTH 17.1 % (11.6-16.5)
[2020-07-23 14:04] LABS: BLOOD UREA NITROGEN 13 mg/dL (7-18); CALCIUM 9.3 mg/dL (8.5-10.1); CARBON DIOXIDE 19.4 mmol/L (21-32); CHLORIDE 111 mmol/L (98-107); COR NA(FOR HYPERGLY) 145 mmol/L (136-145); CREATININE 1.09 mg/dL (0.70-1.30); SODIUM 144 mmol/L (136-145); TROPONIN I 0.13 ng/mL (0-1.5); eGFR NON BLACK RACES > 60 (>60)
--- NOTE | 2020-07-23 14:05 | RAD ---
HISTORYSOB, DIAPHORETIC, AND AGGITATEDSTUDYCHEST, PA/LAT ADULTCOMPARISONJanuary 2020FINDINGSThe trachea is midline. The cardiac silhouette is stable. The lungs demonstrate stable scattered airspace opacities throughout both lungs unchanged compared to prior. The bony thorax is unremarkable.IMPRESSIONStable scattered airspace opacities throughout both lungs unchanged compared to priorElectronically signed by: ALLEN BEST (Jul 23, 2020 14:03:54)
[2020-07-23 14:09] LABS: ALANINE AMINOTRANSFERASE 23 Units/L (12-78); ALBUMIN 2.3 g/dL (3.4-5.0); ALKALINE PHOSPHATASE 71 Units/L (46-116); ASPARTATE AMINO TRANSFERASE 16 Units/L (15-37); CKMB % 3.5 % (<4); COR CA(FOR HYPOALB) 10.7 mg/dL (8.5-10.1); CREATINE KINASE 34 Units/L (39-308); CREATINE KINASE MB 1.2 ng/mL (0-4.0)
[2020-07-23] MEDS ORDERED: ROCEPHIN 1 GRAM IV PREMIX 1 G/50 ML IV.SOLN. IV ONE ×2 (14:26→14:30)
[2020-07-23] MEDS ORDERED: LASIX IVP ONE ×2 (14:26→14:30)
[2020-07-23] MEDS ORDERED: ZITHROMAX INJ 500 MG VIAL IV ONE (14:38)
[2020-07-23] MEDS ORDERED: NS 250 ML IV 250 ML IV ONE (14:39)
[2020-07-23] MEDS ORDERED: ZITHROMAX INJ 500 MG VIAL 500 MG in NS 250 ML IV 250 ML IV SCH (15:00)
[2020-07-23] MEDS ORDERED: PREVACID PO SCH (17:42)
[2020-07-23] MEDS ORDERED: PHARMACY CONSULT LTC MEDICATIONS XX SCH (19:00)
[2020-07-23 20:35] LABS: CKMB % 1.7 % (<4); TROPONIN I 0.11 ng/mL (0-1.5)
[2020-07-23] MEDS: BRILINTA PO SCH (20:39)
[2020-07-23] MEDS: COREG TAB 25 MG PO SCH (20:39)
[2020-07-23] MEDS: MEGACE PO SCH (20:40)
[2020-07-23] MEDS: PEPCID TAB 40 MG PO SCH (20:40)
[2020-07-23] MEDS ORDERED: CARDURA PO SCH (21:00)
[2020-07-23] MEDS ORDERED: SEROquel TAB 25 mg PO SCH (21:00)
[2020-07-23] MEDS ORDERED: LIPITOR TAB 80 MG PO SCH (21:00)
[2020-07-24 01:54] LABS: CKMB % 2.4 % (<4); CREATINE KINASE 41 Units/L (39-308); CREATINE KINASE MB < 1.0 ng/mL (0-4.0); TROPONIN I 0.12 ng/mL (0-1.5)
[2020-07-24 06:04] LABS: BASOPHILS # (AUTO) 0.1 X10^3/uL (0.0-0.1); BASOPHILS % (AUTO) 0.7 % (0.2-1.0); EOSINOPHILS # (AUTO) 0.1 x10^3/uL (0.0-0.2); EOSINOPHILS % (AUTO) 0.8 % (0.9-2.9); HEMATOCRIT 34.2 % (42.0-54.0); HEMOGLOBIN 11.1 g/dL (13.5-18.0); LYMPHOCYTES # (AUTO) 2.2 X10^3/uL (1.3-2.9); LYMPHOCYTES % (AUTO) 25.1 % (21.0-51.0); MEAN CORPUSCULAR HEMOGLOBIN 28.5 pg (27.0-34.0); MEAN CORPUSCULAR HGB CONC 32.5 g/dL (33.0-35.0); MEAN CORPUSCULAR VOLUME 87.8 fL (80.0-100.0); MEAN PLATELET VOLUME 9.9 fL (7.4-11.0); MONOCYTES # (AUTO) 0.7 x10^3/uL (0.3-0.8); MONOCYTES % (AUTO) 8.5 % (0.0-13.0); NEUTROPHILS # (AUTO) 5.6 x10^3/uL (2.2-4.8); NEUTROPHILS % (AUTO) 64.9 % (42.0-75.0); PLATELET COUNT 214 X10^3/uL (150.0-450.0); RED CELL DISTRIBUTION WIDTH 17.5 % (11.6-16.5); WHITE BLOOD COUNT 8.7 X10^3/uL (3.6-10.0)
[2020-07-24 06:18] LABS: ALANINE AMINOTRANSFERASE 18 Units/L (12-78); ALBUMIN 2.1 g/dL (3.4-5.0); ALKALINE PHOSPHATASE 59 Units/L (46-116); ASPARTATE AMINO TRANSFERASE 18 Units/L (15-37); BLOOD UREA NITROGEN 15 mg/dL (7-18); CALCIUM 8.9 mg/dL (8.5-10.1); CARBON DIOXIDE 21.9 mmol/L (21-32); CHLORIDE 110 mmol/L (98-107); COR CA(FOR HYPOALB) 10.4 mg/dL (8.5-10.1); COR NA(FOR HYPERGLY) 144 mmol/L (136-145); SODIUM 144 mmol/L (136-145); TOTAL PROTEIN 6.6 g/dL (6.4-8.2); eGFR NON BLACK RACES > 60 (>60)
[2020-07-24] MEDS ORDERED: PEPCID TAB 40 MG ONE (08:38)
[2020-07-24] MEDS ORDERED: ASPIRIN 81 MG CHEWTAB ONE (08:38)
[2020-07-24] MEDS ORDERED: ZESTRIL TAB 20 MG ONE (08:38)
[2020-07-24] MEDS ORDERED: NORVASC TAB 5 MG ONE (08:38)
[2020-07-24] MEDS ORDERED: VITAMIN D3 125 mcg (5,000 UNITS) PO SCH (09:00)
[2020-07-24] MEDS ORDERED: NORVASC TAB 5 MG PO SCH (09:00)
[2020-07-24] MEDS ORDERED: ALDACTONE TAB 25 MG PO SCH (09:00)
[2020-07-24] MEDS ORDERED: ASPIRIN 81 MG CHEWTAB PO SCH (09:00)
[2020-07-24] MEDS ORDERED: ZESTRIL TAB 20 MG PO SCH (09:00)
[2020-07-24] MEDS ORDERED: FOLIC ACID TAB 1 MG PO SCH (09:00)
[2020-07-24] MEDS: BRILINTA PO SCH (09:09)
[2020-07-24] MEDS: PEPCID TAB 40 MG PO SCH (09:09)
[2020-07-24] MEDS: COREG TAB 25 MG PO SCH (09:09)
[2020-07-24] MEDS: MEGACE PO SCH (09:09)
[2020-07-24 12:44] VITALS: BP 154/68
== END 2020-07-24 12:28 ==
LOC: ICU 13:19 → ER 13:19 → ICU 17:41 → MED/SURG 17:53
PROVIDERS: ADMIT Internal Medicine; ATTEND Obstetrics & Gynecology Obstetrics
DX: B94.8 Sequelae of other specified infectious and parasitic diseases; R06.02 Shortness of breath; R94.31 Abnormal electrocardiogram [ECG] [EKG]; I11.0 Hypertensive heart disease with heart failure; R26.89 Other abnormalities of gait and mobility